=== PATIENT | male | born 1960 | race Caucasian/White ===

== ENCOUNTER 2016-09-27 20:52 | Emergency (ER) | payer BC ==
--- NOTE | 2016-09-27 21:18 | EDM.PDOC ---
<Сергей Ha - Last Filed: 09/27/16 21:13> ED HPI GENERAL MEDICAL PROBLEM - General Chief Complaint: General Stated Complaint: PAIN/SWOLLEN RT KNEE Time Seen by Provider: 09/27/16 21:13 Source of Information: Reports: Patient History Limitations: Reports: No limitations - History of Present Illness INITIAL COMMENTS - FREE TEXT/NARRATIVE: History of present illness: [Patient comes in complaining of acute onset pain to right knee. Patient indicates he's had crepitus in the in the past rodeo and other recreational activities but has never had any problem with pain and for ambulation secondary to his knees. Now it is painful to bend and or place weight on it.] Review of systems: As per history of present illness and below otherwise all systems reviewed and negative. Past medical history: As per history of present illness and as reviewed below otherwise noncontributory. Surgical history: As per history of present illness and as reviewed below otherwise noncontributory. Social history: No reported history of drug or alcohol abuse. Family history: As per history of present illness and as reviewed below otherwise noncontributory. Physical exam: HEENT: Atraumatic, normocephalic, pupils reactive, negative for conjunctival pallor or scleral icterus, mucous membranes moist, throat clear, neck supple, nontender, trachea midline. Lungs: Clear to auscultation, breath sounds equal bilaterally, chest nontender. Heart: S1S2, regular, negative for clicks, rubs, or JVD. Abdomen: Soft, nondistended, nontender. Negative for masses or hepatosplenomegaly. Negative for costovertebral tenderness. Pelvis: Stable nontender. Genitourinary: Deferred. Rectal: Deferred. Extremities: Right knee painful to palpation, with some mild swelling above the patella with integument being erythematous, negative for cords or calf pain. Neurovascular unremarkable. Neuro: Awake, alert, oriented. Cranial nerves II through XII unremarkable. Cerebellum unremarkable. Motor and sensory unremarkable throughout. Exam nonfocal. Diagnostics: [X-ray of right knee] Therapeutics: [Toradol 60 mg IM] Impression: [] Plan: [] Definitive disposition and diagnosis as appropriate pending reevaluation and review of above. - Related Data Allergies Allergy/AdvReac Type Severity Reaction Status Date / Time No Known Allergies Allergy Verified 09/27/16 21:19 Home Meds: Home Meds . [Unable to Verify Home Med List] 09/27/16 [History] ED ROS GENERAL - Review of Systems Review Of Systems: See Below (The history of present illness) ED EXAM, GENERAL - Physical Exam Exam: See Below (See history of present illness) Course - Vital Signs Last Recorded V/S: Last Vital Signs Temp 36.7 C 09/27/16 21:13 Pulse 84 09/27/16 21:13 Resp 18 09/27/16 21:13 BP 138/89 09/27/16 21:13 Pulse Ox 94 L 09/27/16 21:13 - Orders/Labs/Meds Orders: Active Orders 24 hr Category Date Time Status Knee 3V Rt [CR] Stat Exams 09/27/16 21:20 Taken CBC WITH AUTO DIFF [HEME] Stat Lab 09/27/16 22:15 Ordered COMPREHENSIVE METABOLIC PN,CMP [CHEM] Stat Lab 09/27/16 22:15 Ordered ESR [SEDIMENTATION RATE AUTO] [HEME] Stat Lab 09/27/16 22:17 Ordered URIC ACID [CHEM] Stat Lab 09/27/16 22:15 Ordered Meds: Medications Discontinued Medications Generic Name Dose Route Start Last Admin Trade Name Freq PRN Reason Stop Dose Admin Ketorolac Tromethamine 60 mg 09/27/16 21:20 Toradol IM 09/27/16 21:21 ONETIME ONE Departure - Departure Disposition: Home, Self-Care 01 Clinical Impression: Prepatellar bursitis Additional Instructions: The following information is given to patients seen in the emergency department who are being discharged to home. This information is to outline your options for follow-up care. We provide all patients seen in our emergency department with a follow-up referral. The need for follow-up, as well as the timing and circumstances, are variable depending upon the specifics of your emergency department visit. If you don't have a primary care physician on staff, we will provide you with a referral. We always advise you to contact your personal physician following an emergency department visit to inform them of the circumstance of the visit and for follow-up with them and/or the need for any referrals to a consulting specialist. The emergency department will also refer you to a specialist when appropriate. This referral assures that you have the opportunity for followup care with a specialist. All of these measure are taken in an effort to provide you with optimal care, which includes your followup. Under all circumstances we always encourage you to contact your private physician who remains a resource for coordinating your care. When calling for followup care, please make the office aware that this follow-up is from your recent emergency room visit. If for any reason you are refused follow-up, please contact the [facility] emergency department at and asked to speak to the emergency department charge nurse. [facility] Professional Building [address] [place] [address], [address] [place] [address] Followup primary medical doctor/orthopedic clinic above 24-48 hours Keflex is prescribed Ultram as prescribed rest elevation as discussed return as needed discussed - My Orders Last 24 Hours: My Active Orders 09/27/16 22:15 CBC WITH AUTO DIFF [HEME] Stat COMPREHENSIVE METABOLIC PN,CMP [CHEM] Stat URIC ACID [CHEM] Stat 09/27/16 22:17 ESR [SEDIMENTATION RATE AUTO] [HEME] Stat - Assessment/Plan Last 24 Hours: My Active Orders 09/27/16 22:15 CBC WITH AUTO DIFF [HEME] Stat COMPREHENSIVE METABOLIC PN,CMP [CHEM] Stat URIC ACID [CHEM] Stat 09/27/16 22:17 ESR [SEDIMENTATION RATE AUTO] [HEME] Stat <Guille Siddiqui - Last Filed: 09/27/16 22:24> Departure - Departure Time of Disposition: 22:23 Condition: good
[2016-09-27] MEDS ORDERED: Ketorolac 60 MG/2 ML SDV IM ONE (21:20)
[2016-09-27 23:03] LABS: CHLORIDE,CL 107 mmol/L (98-110); SODIUM,NA 139 mmol/L (136-146)
[2016-09-27 23:38] VITALS: BP 130/84
--- NOTE | 2016-09-28 19:24 | CR ---
EXAM DATE: 09/27/16 PATIENT'S AGE: 56 Patient: DAPHNE TOLBERT Facility: [place], [place] Site . Site : [id number] Study: XRay Knee Right [id number] 10:05:33 PM Ordering Physician: Doctor Jerry Final Report: Indication: Pain. Technique: Right knee three views. Comparison: None. Findings: No acute fracture or dislocation. No additional osseous abnormality. Prepatellar soft tissue swelling. No radiopaque foreign body. Impression: No acute osseous abnormality. Prepatellar soft tissue swelling. No radiopaque foreign body. Dictated by Jose Armando Hess MD @ 09/27/2016 10:16:00 PM Dictated by: Jose Armando Hess MD @ 09/27/2016 22:16:16 (Electronic Signature) Report Signed by Proxy and Original Signed Document filed in the Medical Record. [facility]
== END 2016-09-27 22:50 | disposition home or self-care (01) ==
LOC: MW.ED 20:52
DX: M70.41 Prepatellar bursitis, right knee (principal); Y93.89 Activity, other specified
CPT/HCPCS: 36415; 73562-26-RT; 73562-RT; 80053; 84550; 85025; 85652; 99283